=== PATIENT | female | born 1995 | race Caucasian/White ===

== ENCOUNTER 2024-05-04 21:36 | Emergency (ER) | payer BC, MEDICAID, OTHER ==
[2024-05-04] MEDS: Tetracaine HCl/PF 0.5% 4 ML Bottle EYELF ONE (21:55)
== END 2024-05-04 22:20 | disposition home or self-care (01) ==
LOC: LB.ED 21:36
DX: T15.92XA Foreign body on external eye, part unspecified, left eye, initial encounter (principal); S05.02XA Injury of conjunctiva and corneal abrasion without foreign body, left eye, initial encounter; X58.XXXA Exposure to other specified factors, initial encounter
CPT/HCPCS: 65205; 99283-25